=== PATIENT | female | born 1955 | race Caucasian/White ===

== ENCOUNTER 2018-04-16 04:01 | Emergency (ER) | payer OTHER ==
[~2018-04-16 04:01] MED LIST: IBUP-1618 PO; IBUP1TAB15 PO; METO25TA91 PO; ROSU5TAB8 PO; [UNRECOGNIZED DRUG - CODE] TP
[2018-04-16 04:06] VITALS: BP 122/76
--- NOTE | 2018-04-16 04:13 | ER Report ---
History and Physical Time Seen By MD: 04:13 HPI/ROS CHIEF COMPLAINT: ankle pain, swelling and redness HISTORY OF PRESENT ILLNESS: This is a 62 year old female. She had an injury to her foot a few days ago, dropped something on it. Had some redness and swelling on dorsal foot, but no problems. Saw her provider who said to watch and if swelling and redness worsened to come to the ER. Tonight, had redness extending up medial side of her foot and ankle to lower leg. Having some pain in the area just distal and anterior to the medial malleolus. Sharp pain, worsens with movement. No fever or chills. The area is red, but has not been hot. No history of gout. No history of blood clots. No shortness of breath. Allergies: Coded Allergies: No Known Drug Allergies (Verified , 04/16/18) Home Meds Active Scripts Indomethacin (INDOMETHACIN) 25 Mg Capsule, 25 MG PO DIRECTED, #27 CAPSULE 0 Refills Take 2 tablets 3 times a day for 3 days, then take 1 tablet 3 times a day for 3 more days. Prov:WOODY SALDIVAR MD 04/16/18 Discontinued Reported Medications Rosuvastatin Calcium (CRESTOR) 5 Mg Tablet, PO QDAY 12/28/14 Reviewed Nurses Notes: Yes Hx Smoking: No Hx Alcohol Use: Yes (WEEKLY) Constitutional Vital Sign - Last 24 Hours 04/16/18 04:06 Temp 97.9 Pulse 66 Resp 16 B/P (MAP) 122/76 Pulse Ox 93 O2 Delivery Room Air Physical Exam General Appearance: The patient is alert. No acute distress. Cardiovascular: Regular rate and rhythm. Normal capillary refill. Normal pulses DP and PT. Neurological: Alert and oriented x3. Normal sensation and motor function. Skin: Warm and dry. Redness but no skin breakdown or warmth. Musculoskeletal: Tender just over the area anterior to medial malleolus. No other pain. DIFFERENTIAL DIAGNOSIS: After history and physical exam, differential diagnosis was considered for swelling, pain and redness to foot. Look for DVT, infectious and inflammatory causes. Medical Decision Making Data Points Result Diagram: 04/16/18 0435 04/16/18 0435 Laboratory Hematology Test 04/16/18 04:35 Red Blood Count 4.96 M/uL (4.17-5.56) Mean Corpuscular Volume 87.3 fL (80.0-96.0) Mean Corpuscular Hemoglobin 29.5 pg (26.0-33.0) Mean Corpuscular Hemoglobin Concent 33.8 g/dL (32.0-36.0) Red Cell Distribution Width 12.9 % (11.5-14.5) Mean Platelet Volume 8.4 fL (7.2-11.1) Neutrophils (%) (Auto) 50.2 % (39.4-72.5) Lymphocytes (%) (Auto) 39.7 % (17.6-49.6) Monocytes (%) (Auto) 7.3 % (4.1-12.4) Eosinophils (%) (Auto) 2.1 % (0.4-6.7) Basophils (%) (Auto) 0.7 % (0.3-1.4) Nucleated RBC Relative Count (auto) 0.0 /100WBC Neutrophils # (Auto) 4.3 K/uL (2.0-7.4) Lymphocytes # (Auto) 3.4 K/uL (1.3-3.6) Monocytes # (Auto) 0.6 K/uL (0.3-1.0) Eosinophils # (Auto) 0.2 K/uL (0.0-0.5) Basophils # (Auto) 0.1 K/uL (0.0-0.1) Nucleated RBC Absolute Count (auto) 0.00 K/uL Erythrocyte Sedimentation Rate 10 mm/HOUR (0-30) Prothrombin Time 12.5 seconds (12.0-14.4) Prothromb Time International Ratio 0.93 Activated Partial Thromboplast Time 26 seconds (23-35) Sodium Level 141 mmol/L (137-145) Potassium Level 3.4 mmol/L (3.5-5.0) Chloride Level 105 mmol/L (98-107) Carbon Dioxide Level 26 mmol/L (22-31) Blood Urea Nitrogen 15 mg/dl (7-18) Creatinine 0.60 mg/dl (0.52-1.04) Glomerular Filtration Rate Calc > 60.0 Random Glucose 105 mg/dl (75-110) Uric Acid 3.8 mg/dl (2.5-7.5) Calcium Level 9.4 mg/dl (8.4-10.2) Total Bilirubin 0.3 mg/dl (0.2-1.3) Aspartate Amino Transf (AST/SGOT) 26 U/L (0-35) Alanine Aminotransferase (ALT/SGPT) 31 U/L (0-56) Alkaline Phosphatase 69 U/L (0-126) Total Protein 7.4 g/dl (6.3-8.2) Albumin 4.0 g/dl (3.5-5.0) Chemistry Test 04/16/18 04:35 White Blood Count 8.6 k/uL (4.5-11.0) Red Blood Count 4.96 M/uL (4.17-5.56) Hemoglobin 14.6 g/dL (12.0-16.0) Hematocrit 43.3 % (34.0-47.0) Mean Corpuscular Volume 87.3 fL (80.0-96.0) Mean Corpuscular Hemoglobin 29.5 pg (26.0-33.0) Mean Corpuscular Hemoglobin Concent 33.8 g/dL (32.0-36.0) Red Cell Distribution Width 12.9 % (11.5-14.5) Platelet Count 261 K/uL (150-450) Mean Platelet Volume 8.4 fL (7.2-11.1) Neutrophils (%) (Auto) 50.2 % (39.4-72.5) Lymphocytes (%) (Auto) 39.7 % (17.6-49.6) Monocytes (%) (Auto) 7.3 % (4.1-12.4) Eosinophils (%) (Auto) 2.1 % (0.4-6.7) Basophils (%) (Auto) 0.7 % (0.3-1.4) Nucleated RBC Relative Count (auto) 0.0 /100WBC Neutrophils # (Auto) 4.3 K/uL (2.0-7.4) Lymphocytes # (Auto) 3.4 K/uL (1.3-3.6) Monocytes # (Auto) 0.6 K/uL (0.3-1.0) Eosinophils # (Auto) 0.2 K/uL (0.0-0.5) Basophils # (Auto) 0.1 K/uL (0.0-0.1) Nucleated RBC Absolute Count (auto) 0.00 K/uL Erythrocyte Sedimentation Rate 10 mm/HOUR (0-30) Prothrombin Time 12.5 seconds (12.0-14.4) Prothromb Time International Ratio 0.93 Activated Partial Thromboplast Time 26 seconds (23-35) Glomerular Filtration Rate Calc > 60.0 Uric Acid 3.8 mg/dl (2.5-7.5) Calcium Level 9.4 mg/dl (8.4-10.2) Total Bilirubin 0.3 mg/dl (0.2-1.3) Aspartate Amino Transf (AST/SGOT) 26 U/L (0-35) Alanine Aminotransferase (ALT/SGPT) 31 U/L (0-56) Alkaline Phosphatase 69 U/L (0-126) Total Protein 7.4 g/dl (6.3-8.2) Albumin 4.0 g/dl (3.5-5.0) Coagulation Test 04/16/18 04:35 Prothrombin Time 12.5 seconds Prothromb Time International Ratio 0.93 Activated Partial Thromboplast Time 26 seconds EKG/Imaging Imaging VENOUS DOPP LOW LEFT EXTREMITY HISTORY: Left lower extremity redness and swelling COMPARISON: None. FINDINGS: Grayscale, duplex and color Doppler interrogation of the left lower extremity deep veins from common femoral vein to proximal calf was completed. The greater saphenous vein in the left proximal thigh was evaluated using similar technique. Common femoral vein - Negative. Femoral vein - Negative. Deep femoral vein - Negative. Popliteal vein - Negative. Visualized deep calf veins - Negative. Popliteal fossa: Negative. Greater saphenous vein in the proximal thigh: Negative. IMPRESSION: 1. No evidence for left lower extremity DVT. Report Dictated By: Dayton Helton MD at 04/16/2018 5:11 AM ED Course/Re-evaluation Clinical Indication for ER IV: IV Access ED Course White count normal, no fever. No sign of DVT on ultrasound. This appears to be inflammatory, but does not look like typical gout and uric acid is low. Will still do Indomethacin for the anti-inflammatory, use and TARYN wrap and elevation. Decision to Disposition Date: Apr 16, 2018 Decision to Disposition Time: 05:31 Depart Departure Latest Vital Signs Vital Signs Date Time Temp Pulse Resp B/P (MAP) Pulse Ox O2 Delivery O2 Flow Rate FiO2 04/16/18 04:06 97.9 66 16 122/76 93 Room Air Impression: Primary Impression: Ankle pain, left Condition: Improved Disposition: HOME OR SELF-CARE Referrals: CECY ESTRADA DO (PCP) New Scripts Indomethacin (INDOMETHACIN) 25 Mg Capsule 25 MG PO DIRECTED, #27 CAPSULE 0 Refills Take 2 tablets 3 times a day for 3 days, then take 1 tablet 3 times a day for 3 more days. Prov: WOODY SALDIVAR MD 04/16/18 Patient Instructions: Musculoskeletal Pain (ED) Additional Instructions: Indomethacin 25mg, take 2 tablets 3 times a day for 3 days, then decrease to 1 tablet 3 times a day for 3 more days. Apply ice 20 minutes every 1-2 hours while awake. An TARYN wrap can be used for compression to help reduce swelling. Rest the injured area, keep it elevated while at rest. Problem Qualifiers Primary Impression: Ankle pain, left Chronicity: acute Qualified Codes: M25.572 - Pain in left ankle and joints of left foot WOODY SALDIVAR MD Apr 16, 2018 04:13
[2018-04-16 04:47] LABS: PLATELET COUNT, AUTOMATED 261 K/uL (150-450)
[2018-04-16 04:52] LABS: INR 0.93
--- NOTE | 2018-04-16 05:24 | RADIOLOGY IMAGING REPORT ---
FACILITY: [facility] - [place] PATIENT NAME: Fouzia Hein : 1955 MR: [id number] V: [id number] EXAM DATE: ORDERING PHYSICIAN: WOODY SALDIVAR TECHNOLOGIST: Location: [facility] - [place] Patient: Fouzia Hein : 1955 Visit/Account:[id number] Date of Sevice: 04/16/2018 VENOUS DOPP LOW LEFT EXTREMITY HISTORY: Left lower extremity redness and swelling COMPARISON: None. FINDINGS: Grayscale, duplex and color Doppler interrogation of the left lower extremity deep veins from common femoral vein to proximal calf was completed. The greater saphenous vein in the left proximal thigh wa s evaluated using similar technique. Common femoral vein - Negative. Femoral vein - Negative. Deep femoral vein - Negative. Popliteal vein - Negative. Visualized deep calf veins - Negative. Popliteal fossa: Negative. Greater saphenous vein in the proximal thigh: Negative. IMPRESSION: 1. No evidence for left lower extremity DVT. Report Dictated By: Dayton Helton MD at 04/16/2018 5:11 AM Report E-Signed By: Dayton Helton MD at 04/16/2018 5:20 AM WSN:[id number]
[2018-04-16] MEDS ORDERED: INDOMETHACIN 25 MG CAP PO ONE (05:30)
[2018-04-16] MEDS ORDERED: INDO-21 PO (05:35)
== END 2018-04-16 05:51 | disposition home or self-care (01) ==
LOC: ER 04:30
DX: M25.572 Pain in left ankle and joints of left foot (principal)
CPT/HCPCS: 82040; 82247; 82310; 82374; 82435; 82565; 82947; 84075; 84132; 84155; 84295; 84450; 84460; 84520; 84550; 85025; 85610; 85651; 85730; 99284

== ENCOUNTER → 2018-11-10 | Outpatient (CLI) | payer OTHER ==
[~2018-11-10] MED LIST changes: +INDO-21 PO
--- NOTE | 2018-11-10 15:26 | RADIOLOGY IMAGING REPORT ---
FACILITY: [facility] - [place] PATIENT NAME: Fouzia Hein : 1955 MR: [id number] V: [id number] EXAM DATE: ORDERING PHYSICIAN: CECY ESTRADA TECHNOLOGIST: Location: [facility] Patient: Fouzia Hein : 1955 Visit/Account:[id number] Date of Sevice: 11/10/2018 DEXA Scan Clinical history: Postmenopausal. Comparison: DEXA scan from 02/16/2003 LUMBAR SPINE: The bone mineral density (BMD) measured from L1-L4 correlates with a Z-score of 0.1 and a T-score of -0.5 which is Normal as defined by the World Health Organization. The corresponding risk of fracture in the lumbar spine is 1-2 times increased compared with a young adult reference population. This v alue has decrease by 17.3 % since the prior study. More than 5% change is considered significant. HIP: Bone mineral density (BMD) measured in the LEFT total hip region correlates with a Z-score -1.9 and a T-score of -2.4 which is osteopenia as defined by the World Health Organization. The corresponding risk of fracture in the hip is 4-6 times increased compared to a young adult reference population. Th is value has decrease by 17.4 % since the prior study. More than 5% change is considered significant . T score left femoral neck -2.1 Bone mineral density (BMD) measured in the Femoral Neck region measures 0.746 g/cm?. IMPRESSION: 1. Lumbar spine: Normal. There has been 17.3% decrease in the bone mineral density since the previo us exam. 2. Left Total Hip: Osteopenia. There has been 17.4% decrease in the bone mineral density since the previous exam. 3. Femoral Neck: Bone Mineral Density is 0.746 g/cm? The next DEXA scan of this patient should include the following sites: L1-L4 and the left hip. FRAX? WHO Fracture Risk Assessment Tool link: <http://www.shef.ac.uk/FRAX/tool.jsp?locationValue=9> PLEASE NOTE: 1) The World Health Organization defines low BMD as follows: T-score Normal > -1 Osteopenia < -1 and > -2.5 Osteoporosis < -2.5 without fractures Established osteoporosis < -2.5 with fractures 2) In general, you may wish to consider: Diagnosis Treatment Follow-up DEXA Normal BMD Prevention 2-3 years Osteopenia Prevention/therapy 1-2 years Osteoporosis Therapy Yearly 3) Fracture risk estimated from the T-score is more accurate for vertebral fractures (often spontane ous) than for hip fractures. Report Dictated By: Saray Arreola MD at 11/10/2018 3:18 PM Report E-Signed By: Saray Arreola MD at 11/10/2018 3:19 PM WSN:[email or web address]
== END ==
LOC: RAD 00:40
PROVIDERS: ATTEND Family Medicine
DX: M85.851 Other specified disorders of bone density and structure, right thigh (principal)
CPT/HCPCS: 77080